=== PATIENT | male | born 1995 | race Caucasian/White ===

== ENCOUNTER 2020-01-15 10:52 | Outpatient (CLI) | payer MEDICARE, MEDICAID, SELFPAY | END 2020-01-15 10:53 | disposition home or self-care (01) | LOC: ANHBWCAUD 10:55 | PROVIDERS: PCP Family Medicine; Visit Provider Family Medicine | DX: H90.3 Sensorineural hearing loss, bilateral (principal) | CPT/HCPCS: 92557; 92567 ==

== ENCOUNTER 2021-02-24 09:56 | Outpatient (CLI) | payer MEDICARE, MEDICAID, SELFPAY | END 2021-02-24 09:57 | disposition home or self-care (01) | LOC: ANHBWCAUD 09:57 | PROVIDERS: PCP Family Medicine; Visit Provider Family Medicine | DX: H90.3 Sensorineural hearing loss, bilateral (principal) | CPT/HCPCS: 92557; 92567 ==

== ENCOUNTER 2022-03-02 09:14 | Outpatient (CLI) | payer MEDICARE, MEDICAID, SELFPAY | END 2022-03-02 09:15 | disposition home or self-care (01) | LOC: ANHBWCAUD 09:15 | PROVIDERS: PCP Family Medicine; Visit Provider Family Medicine | DX: Z01.10 Encounter for examination of ears and hearing without abnormal findings (principal); H90.3 Sensorineural hearing loss, bilateral | CPT/HCPCS: 92557; 92567 ==